=== PATIENT | female | born 1945 | race Caucasian/White ===

== ENCOUNTER 2022-08-11 16:23 | Inpatient (IN) | payer MEDICARE ==
[2022-08-11] MEDS ORDERED: Albuterol 90 MCG/6.7 GM Inhaler INH PRN (16:36)
[2022-08-11] MEDS ORDERED: Ondansetron 4 MG/2 ML SDV IV PRN (16:37)
[2022-08-11] MEDS ORDERED: Magnesium Hydroxide 400 MG/5 ML Susp 30 ML Cup PO PRN (16:37)
[2022-08-11] MEDS ORDERED: Acetaminophen 325 MG Tab PO PRN (16:37)
[2022-08-11] MEDS ORDERED: Ondansetron 4 MG Tab.DIS PO PRN (16:37)
[2022-08-11] MEDS ORDERED: Sodium Chloride 0.9% 1,000 ML IV SCH (16:45)
[2022-08-11 17:27] LABS: A/G RATIO 1.1 (1.2-2.2); ALANINE AMINOTRANSFERASE,ALT 14 U/L (12-78); ALBUMIN 3.2 g/dL (3.4-5.0); ALKALINE PHOSPHATASE 120 U/L (46-116); ANION GAP 9.7 mmol/L (5.0-14.0); ASPARTATE AMNIOTRANSFERASE,AST 11 U/L (15-37); BILIRUBIN TOTAL 0.6 mg/dL (0.2-1.0); BLOOD UREA NITROGEN,BUN 19 mg/dL (7-18); CALCIUM 8.7 mg/dL (8.5-10.1); CARBON DIOXIDE,CO2 24 mmol/L (21-32); CHLORIDE,CL 106 mmol/L (100-108); CREATININE 1.2 mg/dL (0.6-1.0); EST CRCL DRUG DOSING (CG) 32.04 mL/min; ESTIMATED GFR 47 mL/min (>60); GLUCOSE RANDOM 91 mg/dL (74-106); POTASSIUM,K 4.7 mmol/L (3.6-5.2); SODIUM,NA 140 mmol/L (140-148)
[2022-08-11 17:35] LABS: IRON,FE 9 ug/dL (50-170); PERCENT FE SATURATION 2 % (20-55); TOTAL IRON BINDING CAPACITY 411 ug/dl (250-450)
[2022-08-11] MEDS: Pantoprazole 40 MG Tab.CR PO SCH (17:41)
[2022-08-11] MEDS: diphenhydrAMINE 25 MG Cap PO SCH (20:25)
[2022-08-11] MEDS ORDERED: Citalopram 20 MG Tab PO SCH (21:00)
[2022-08-11] MEDS ORDERED: atorvaSTATin 10 MG Tab PO SCH (21:00)
[2022-08-11] MEDS ORDERED: Cholecalciferol (Vitamin D3) 25 MCG Tab PO SCH (21:00)
[2022-08-11] MEDS ORDERED: Vitamin B Complex Tab PO SCH (21:00)
[2022-08-11] MEDS ORDERED: buPROPion 150 MG Tab.ER PO SCH (21:00)
[2022-08-11] MEDS ORDERED: Ascorbic Acid 500 MG Tab PO SCH (21:00)
[2022-08-11] MEDS ORDERED: Melatonin 3 MG Tab PO SCH (21:00)
[2022-08-12 06:16] LABS: HEMATOCRIT 22.9 % (34.3-46.0); MEAN CORPUSCULAR HEMOGLOBIN 20.4 pg (31.6-35.5); MEAN CORPUSCULAR HGB CONC 27.5 g/dL (31.6-35.5); MEAN CORPUSCULAR VOLUME 74.1 fL (81.4-99.0); RED BLOOD CELL COUNT 3.09 M/uL (3.77-5.24)
[2022-08-12 06:30] LABS: HEMOGLOBIN 6.3 g/dL (11.2-15.5)
[2022-08-12] MEDS: Pantoprazole 40 MG Tab.CR PO SCH (08:01)
[2022-08-12] MEDS: diphenhydrAMINE 25 MG Cap PO SCH (08:03)
== END 2022-08-12 11:40 | disposition home or self-care (01) | DRG 812 ==
LOC: JP.ICU 16:23
PROVIDERS: ADMIT Internal Medicine; ATTEND Internal Medicine
PROC: 30233N1 Transfusion of Nonautologous Red Blood Cells into Peripheral Vein, Percutaneous Approach (ICD-10-PCS; principal; 2022-08-11)
PROC: 30233N1 Transfusion of Nonautologous Red Blood Cells into Peripheral Vein, Percutaneous Approach (ICD-10-PCS; 2022-08-12)
DX: D62 Acute posthemorrhagic anemia (principal); Z68.42 Body mass index [BMI] 45.0-49.9, adult; J44.9 Chronic obstructive pulmonary disease, unspecified; F17.210 Nicotine dependence, cigarettes, uncomplicated; F41.9 Anxiety disorder, unspecified; F32.A Depression, unspecified; K55.20 Angiodysplasia of colon without hemorrhage; E66.01 Morbid (severe) obesity due to excess calories; Z79.82 Long term (current) use of aspirin; Z79.899 Other long term (current) drug therapy; Z98.890 Other specified postprocedural states
CPT/HCPCS: 36415; 36430; 80053; 82607; 82728; 83550; 84443; 85027; 86850; 86900; 86901; 86920; 86922; 99222; 99238; A9270-GY; J7030; P9016

== ENCOUNTER 2024-07-25 13:25 | Emergency (ER) | payer MEDICARE ==
[2024-07-25] MEDS: Lidocaine 1% 10 ML MDV INJECT ONE (14:43)
== END 2024-07-25 15:02 | disposition home or self-care (01) ==
LOC: JP.ED 13:25
DX: S81.812A Laceration without foreign body, left lower leg, initial encounter (principal); I10 Essential (primary) hypertension; J44.9 Chronic obstructive pulmonary disease, unspecified; M19.90 Unspecified osteoarthritis, unspecified site; Z88.8 Allergy status to other drugs, medicaments and biological substances; Z91.048 Other nonmedicinal substance allergy status; Z91.018 Allergy to other foods; Z79.899 Other long term (current) drug therapy; Z79.82 Long term (current) use of aspirin; Z90.710 Acquired absence of both cervix and uterus; Z87.891 Personal history of nicotine dependence; W26.8XXA Contact with other sharp object(s), not elsewhere classified, initial encounter
CPT/HCPCS: 12002; 99282; J2003